=== PATIENT | male | born 1990 | race Caucasian/White ===

== ENCOUNTER 2019-09-02 15:16 | Emergency (ER) | payer SELFPAY ==
[~2019-09-02] VITALS: Ht 165.1 cm; Wt 76.2 kg
[2019-09-02 15:41] VITALS: Ht 165.1 cm; Wt 76.2 kg
[2019-09-02 16:33] VITALS: BP 133/82
== END 2019-09-02 16:33 | disposition home or self-care (01) ==
LOC: ED 15:16
DX: J20.9 Acute bronchitis, unspecified (principal)
CPT/HCPCS: Q0092